=== PATIENT | male | born 1975 | race Caucasian/White ===

== ENCOUNTER 2017-09-01 19:36 | Emergency (ER) | payer OTHER ==
[~2017-09-01] VITALS: Ht 165.1 cm; Wt 65.0 kg
[2017-09-01 19:37] VITALS: BP 132/86; PULSE 111; RESP 16; TEMP 98; O2SAT 100
--- NOTE | 2017-09-01 23:38 | PD ---
HPI Chief Complaint: Alcohol/Drug Intoxication Time Seen by Provider: 20:48 Travel History International Travel<30 days: No Contact w/Intl Traveler<30days: No Traveled to known affect area: No History of Present Illness HPI This is a 42-year-old male. He drinks alcohol every day. Today he drank 3 alcoholic drinks. His brother is here and states that the patient was more alcohol maybe as much as a half a liter to a liter of liquor daily. The patient desires to quit drinking alcohol. He denies any tremor or medical complaint otherwise right now. No suicidal or homicidal ideation. His brother is here and notes that a prior state [facility] was unsuccessful. The patient would like to find an inpatient facility to undergo rehabilitation. [facility], [facility] Past Medical History Diminished Hearing: No Neurologic: Yes Immunizations Current: No Pancreatitis: Yes Seizures: Yes Past Surgical History Neurologic Surgery: Yes (BRAIN BLEED) Social History Alcohol Use: Yes (DAILY) Tobacco Use: Yes (1 PPD ) Substance Use: No (HX OPIATE ADDICTION) Allergies-Medications (Allergen,Severity, Reaction): Coded Allergies: No Known Allergies (Verified Adverse Reaction, Unknown, 09/01/17) Reported Meds & Prescriptions Reported Meds & Active Scripts Active No Active Prescriptions or Reported Medications Review of Systems Except as stated in HPI: all other systems reviewed are Neg General / Constitutional: No: Fever Physical Exam Narrative GENERAL: 42-year-old male well-nourished well-developed mild anxiety SKIN: Warm and dry. HEAD: Atraumatic. Normocephalic. EYES: Pupils equal and round. No scleral icterus. No injection or drainage. ENT: No nasal bleeding or discharge. Mucous membranes pink and moist. NECK: Trachea midline. No JVD. CARDIOVASCULAR: Regular rate and rhythm. RESPIRATORY: No accessory muscle use. Clear to auscultation. Breath sounds equal bilaterally. GASTROINTESTINAL: Abdomen soft, non-tender, nondistended. Hepatic and splenic margins not palpable. MUSCULOSKELETAL: Extremities without clubbing, cyanosis, or edema. No obvious deformities. NEUROLOGICAL: Awake and alert. No obvious cranial nerve deficits. Motor grossly within normal limits. Five out of 5 muscle strength in the arms and legs. Normal speech. PSYCHIATRIC: Appropriate mood and affect; insight and judgment normal. Data Data Last Documented VS Vital Signs Date Time Temp Pulse Resp B/P (MAP) Pulse Ox O2 Delivery O2 Flow Rate FiO2 1/25/18 21:03 Room Air 09/01/17 19:37 98.0 111 16 132/86 (101) 100 Orders Orders Chlordiazepoxide (Librium) (09/01/17 21:15) MDM Medical Decision Making Medical Screen Exam Complete: Yes Emergency Medical Condition: Yes Medical Record Reviewed: Yes Differential Diagnosis Alcohol withdrawal, alcohol intoxication, alcoholism Narrative Course Discouraged service appreciated and placement in a rehabilitation facility is to be pursued. Diagnosis Primary Impression: Alcoholism Scripts No Active Prescriptions or Reported Meds Armond Rubio MD Sep 01, 2017 23:38
[2017-09-02 05:15] VITALS: BP 130/83; PULSE 77; RESP 16; O2SAT 98
== END 2017-09-02 10:14 | disposition short-term general hospital (02) ==
LOC: NEPD 19:36
DX: F10.20 Alcohol dependence, uncomplicated (principal); F17.210 Nicotine dependence, cigarettes, uncomplicated
CPT/HCPCS: 99283